=== PATIENT | female | born 1985 | race Caucasian/White ===

== ENCOUNTER 2016-09-01 18:39 | Emergency (ER) | payer MEDICAID, OTHER ==
[~2016-09-01] VITALS: Ht 157.5 cm; Wt 100.0 kg
[2016-09-01 18:49] VITALS: BP 177/99; PULSE 105; RESP 20; TEMP 98.7; O2SAT 99
[2016-09-01] MEDS ORDERED: LURA20TA PO (19:02)
[2016-09-01] MEDS ORDERED: HYDR1CAP30 PO (19:02)
[2016-09-01] MEDS ORDERED: PARO40TA2 PO (19:02)
--- NOTE | 2016-09-01 19:40 | PD ---
HPI Chief Complaint: Suicide Ideation/Attempt Time Seen by Provider: 19:00 Travel History International Travel<30 days: No Contact w/Intl Traveler<30days: No Traveled to known affect area: No History of Present Illness HPI 31-year-old female with history of anxiety, depression, bipolar disorder presents emergency Department voluntarily requesting psychiatric evaluation. Patient reports over the last week she has become increasingly more depressed, anxious having multiple panic attacks. She reports she has thoughts of wanting to "end it all". She states she can no longer handle the anxiety. Her plan is to overdose on her medications. Patient denies homicidal ideation. She reports that [facility]. She has no other medical complaint. [facility] Past Medical History Narrative Medical Significant for anxiety, depression, bipolar disorder Anxiety: Yes Depression: Yes Kidney Stones: Yes ?: Not LMP: AT THIS TIME Past Surgical History Tonsillectomy: Yes Other Surgery: Yes (LITHTRIPSY) Social History Alcohol Use: Yes (OCCASIONAL) Tobacco Use: Yes (1/2 PPD) Substance Use: Yes (MARIJUANA) Allergies-Medications (Allergen,Severity, Reaction): Coded Allergies: Phenergan (Verified Adverse Reaction, Severe, 09/01/16) shaking Reported Meds & Prescriptions Reported Meds & Active Scripts Active Reported Latuda (Lurasidone) 20 Mg Tab 20 Mg PO DAILY Paroxetine (Paroxetine HCl) 40 Mg Tab 40 Mg PO DAILY Hydroxyzine Pamoate 25 Mg Cap 25 Mg PO TID Review of Systems Except as stated in HPI: all other systems reviewed are Neg General / Constitutional: No: Fever Eyes: No: Visual changes HENT: No: Headaches Cardiovascular: No: Chest Pain or Discomfort Respiratory: No: Shortness of Breath Gastrointestinal: No: Abdominal Pain Genitourinary: No: Dysuria Physical Exam Narrative GENERAL: Alert, well-appearing female, tearful SKIN: Focused skin assessment warm/dry. HEAD: Atraumatic. Normocephalic. EYES: Pupils equal and round. No scleral icterus. No injection or drainage. ENT: No nasal bleeding or discharge. Mucous membranes pink and moist. NECK: Trachea midline. No JVD. CARDIOVASCULAR: Regular rate and rhythm. No murmur appreciated. RESPIRATORY: No accessory muscle use. Clear to auscultation. Breath sounds equal bilaterally. GASTROINTESTINAL: Abdomen soft, non-tender, nondistended. Hepatic and splenic margins not palpable. MUSCULOSKELETAL: No obvious deformities. No clubbing. No cyanosis. No edema. NEUROLOGICAL: Awake and alert. No obvious cranial nerve deficits. Motor grossly within normal limits. Normal speech. PSYCHIATRIC: Patient depressed and tearful; insight and judgment normal. Data Data Last Documented VS Vital Signs Date Time Temp Pulse Resp B/P Pulse Ox O2 Delivery O2 Flow Rate FiO2 09/01/16 19:50 95 20 136/70 97 Room Air 09/01/16 18:49 98.7 Orders Complete Blood Count With Diff (09/01/16 19:11) Comprehensive Metabolic Panel (09/01/16 19:11) Psych Screen (09/01/16 19:11) Drug Screen, Random Urine (09/01/16 19:11) Salicylates (Aspirin) (09/01/16 19:11) Tylenol (Acetaminophen) (09/01/16 19:11) Lorazepam Inj (Ativan Inj) (09/01/16 20:30) Diet Regular Basic (09/01/16 Dinner) Labs Laboratory Tests Test 09/01/16 19:30 White Blood Count 10.6 TH/MM3 Red Blood Count 4.75 MIL/MM3 Hemoglobin 15.2 GM/DL Hematocrit 43.8 % Mean Corpuscular Volume 92.3 FL Mean Corpuscular Hemoglobin 32.0 PG Mean Corpuscular Hemoglobin 34.7 % Concent Red Cell Distribution Width 12.7 % Platelet Count 275 TH/MM3 Mean Platelet Volume 9.0 FL Neutrophils (%) (Auto) 58.5 % Lymphocytes (%) (Auto) 27.4 % Monocytes (%) (Auto) 11.0 % Eosinophils (%) (Auto) 2.1 % Basophils (%) (Auto) 1.0 % Neutrophils # (Auto) 6.2 TH/MM3 Lymphocytes # (Auto) 2.9 TH/MM3 Monocytes # (Auto) 1.2 TH/MM3 Eosinophils # (Auto) 0.2 TH/MM3 Basophils # (Auto) 0.1 TH/MM3 CBC Comment DIFF FINAL Differential Comment Sodium Level 140 MEQ/L Potassium Level 3.9 MEQ/L Chloride Level 107 MEQ/L Carbon Dioxide Level 24.8 MEQ/L Anion Gap 8 MEQ/L Blood Urea Nitrogen 8 MG/DL Creatinine 0.71 MG/DL Estimat Glomerular Filtration 97 ML/MIN Rate Random Glucose 100 MG/DL Calcium Level 8.9 MG/DL Total Bilirubin 0.2 MG/DL Aspartate Amino Transf 89 U/L (AST/SGOT) Alanine Aminotransferase 176 U/L (ALT/SGPT) Alkaline Phosphatase 90 U/L Total Protein 7.3 GM/DL Albumin 3.4 GM/DL Salicylates Level 3.5 MG/DL Urine Opiates Screen NEG Acetaminophen Level LESS THAN 2.0 MCG/ML Urine Barbiturates Screen NEG Urine Amphetamines Screen NEG Urine Benzodiazepines Screen NEG Urine Cocaine Screen NEG Urine Cannabinoids Screen NEG MDM Medical Decision Making Medical Screen Exam Complete: Yes Emergency Medical Condition: Yes Differential Diagnosis suicidal ideation, anxiety, depression Narrative Course 31 year old female with hx of anxiety & depression here with suicidal ideation. Patient stated she wanted to kill herself by overdosing on her medications. She makes statements that her anxiety is "too much, I can't handle it anymore". Labs and tox screen pending. Once cleared patient will have psychiatric evaluation. CBC unremarkable CMP: AST 89, ALT 176- patient reports she's been told in the past that she has non-alcoholic hepatic steatosis with elevated liver enzymes. She was instructed she needs to follow-up with PCP and GI. Tox screen negative. Patient is medically cleared. Diagnosis Primary Impression: Suicidal ideation Additional Impression: Transaminitis Maegan Hercules Sep 01, 2016 19:40
[2016-09-01 19:50] VITALS: BP 136/70; PULSE 95; RESP 20; O2SAT 97
[2016-09-01 20:03] LABS: AUTOMATED NEUTROPHIL # 6.2 TH/MM3 (1.8-7.7); BASOPHIL # 0.1 TH/MM3 (0-0.2); EOSINOPHIL # 0.2 TH/MM3 (0-0.4); EOSINOPHIL % 2.1 % (0.0-4.0); HEMATOCRIT 43.8 % (35.0-46.0); HEMO FLAGS DIFF FINAL; LYMPH % 27.4 % (9.0-44.0); LYMPHOCYTE # 2.9 TH/MM3 (1.0-4.8); MEAN CELL VOLUME 92.3 FL (80.0-100.0); MEAN CORPUSCULAR HGB CONC 34.7 % (32.0-36.0); NEUT % 58.5 % (16.0-70.0); PLATELET COUNT 275 TH/MM3 (150-450); RED BLOOD COUNT 4.75 MIL/MM3 (4.00-5.30); RED CELL DISTRIBUTION WIDTH 12.7 % (11.6-17.2); WHITE BLOOD COUNT 10.6 TH/MM3 (4.0-11.0)
[2016-09-01 20:26] LABS: ALT (GPT) 176 U/L (10-53); AMPHETAMINE, URINE NEG (NEG); BARBITURATES, URINE NEG (NEG)
[2016-09-01 20:27] LABS: ALKALINE PHOSPHATASE 90 U/L (45-117); COCAINE, URINE NEG (NEG); TOTAL BILIRUBIN ADULT 0.2 MG/DL (0.2-1.0)
[2016-09-01 20:29] LABS: ACETAMINOPHEN LESS THAN 2.0 MCG/ML (10.0-30.0); ANION GAP 8 MEQ/L (5-15); AST (GOT) 89 U/L (15-37); BICARBONATE 24.8 MEQ/L (21.0-32.0); BLOOD UREA NITROGEN 8 MG/DL (7-18); CHLORIDE 107 MEQ/L (98-107); GLOMERULAR FILTRATION RATE 97 ML/MIN (>89); POTASSIUM 3.9 MEQ/L (3.5-5.1); SODIUM (NA) 140 MEQ/L (136-145)
[2016-09-01] MEDS ORDERED: LORazepam 2 MG/ML VIAL IV PUSH ONE (20:30)
[2016-09-01 21:07] VITALS: BP 118/56; PULSE 91; RESP 20; O2SAT 97
[2016-09-01 21:40] VITALS: BP 148/89; PULSE 93; RESP 18; O2SAT 96
[2016-09-02 02:13] VITALS: BP 125/75; PULSE 81; RESP 18; O2SAT 97
[2016-09-02 06:08] VITALS: BP 116/55; PULSE 78; RESP 20; O2SAT 95
[2016-09-02 13:27] VITALS: BP 130/70; PULSE 78; RESP 18; O2SAT 95
[2016-09-02 22:04] VITALS: BP 139/66; PULSE 66; RESP 19; O2SAT 97
== END 2016-09-02 23:38 ==
LOC: NEPD 18:39 → NEPJ 09-02 23:38
DX: R45.851 Suicidal ideations (principal); R74.0 Nonspecific elevation of levels of transaminase and lactic acid dehydrogenase [LDH]; Z79.899 Other long term (current) drug therapy
CPT/HCPCS: 80053; 80307; 85025; 96374; 99284; J2060

== ENCOUNTER 2016-11-05 17:42 | Emergency (ER) | payer MEDICAID ==
[~2016-11-05] VITALS: Ht 157.5 cm; Wt 100.0 kg
[~2016-11-05 17:42] MED LIST: HYDR1CAP30 PO; LURA20TA PO; PARO40TA2 PO
[2016-11-05 17:43] VITALS: BP 162/97; PULSE 106; RESP 24; TEMP 97.8; O2SAT 97
[2016-11-05] MEDS ORDERED: SODIUM CHLOR 0.9% 1000 ML INJ 1,000 ML IV SCH (18:06)
--- NOTE | 2016-11-05 18:08 | PD ---
HPI Chief Complaint: Complaint Time Seen by Provider: 17:59 Travel History International Travel<30 days: No Contact w/Intl Traveler<30days: No Traveled to known affect area: No History of Present Illness HPI 31 year old female with history of medullary sponge disease and anxiety presents to the ED for evaluation of bilateral flank pain, worse on the right than the left, urinary urgency with decreased output and concern she may have a kidney stone. Pt states she has had this happen several times in the past and the symptoms are similar. Denies fever or chills. Some nausea without vomiting. No hematuria. Pt is currently on her menses. No other symptoms to report. PFSH Past Medical History Anxiety: Yes Depression: Yes Kidney Stones: Yes ?: Not Past Surgical History Tonsillectomy: Yes Other Surgery: Yes (LITHTRIPSY) Social History Alcohol Use: Yes (OCCASIONAL) Tobacco Use: Yes (1/2 PPD) Substance Use: No Allergies-Medications (Allergen,Severity, Reaction): Coded Allergies: promethazine (Unverified Adverse Reaction, Severe, 11/05/16) shaking Reported Meds & Prescriptions Reported Meds & Active Scripts Active Lortab (Hydrocodone-Acetaminophen) 5-325 Mg Tab 1 Tab PO Q6H PRN Flomax (Tamsulosin HCl) 0.4 Mg Cap 0.4 Mg PO HS Keflex (Cephalexin) 500 Mg Cap 500 Mg PO Q12H 7 Days Reported Latuda (Lurasidone) 20 Mg Tab 20 Mg PO DAILY Paroxetine (Paroxetine HCl) 40 Mg Tab 40 Mg PO DAILY Hydroxyzine Pamoate 25 Mg Cap 25 Mg PO TID Review of Systems Except as stated in HPI: all other systems reviewed are Neg Physical Exam Narrative GENERAL: Well nourished female patient in no acute distress. Pt verbalizes significant anxiety being here. SKIN: Warm and dry. HEAD: Atraumatic. Normocephalic. EYES: Pupils equal and round. No scleral icterus. No injection or drainage. ENT: No nasal bleeding or discharge. Mucous membranes pink and moist. NECK: Trachea midline. No JVD. CARDIOVASCULAR: Tachycardic rate and rhythm. RESPIRATORY: No accessory muscle use. Clear to auscultation. Breath sounds equal bilaterally. GASTROINTESTINAL: Abdomen soft, nondistended. Supra pubic tenderness to deep palpation. Hepatic and splenic margins not palpable. MUSCULOSKELETAL: Extremities without clubbing, cyanosis, or edema. No obvious deformities. Mild CVA tenderness on right. NEUROLOGICAL: Awake and alert. No obvious cranial nerve deficits. Motor grossly within normal limits. Five out of 5 muscle strength in the arms and legs. Normal speech. Data Data Last Documented VS Vital Signs Date Time Temp Pulse Resp B/P (MAP) Pulse Ox O2 Delivery O2 Flow Rate FiO2 11/05/16 19:59 11/05/16 19:31 16 11/05/16 19:29 98.5 82 100 Room Air Orders Orders Basic Metabolic Panel (Bmp) (11/05/16 18:06) Complete Blood Count With Diff (11/05/16 18:06) Urinalysis - C+S If Indicated (11/05/16 18:06) Iv Access Insert/Monitor (11/05/16 18:06) Ecg Monitoring (11/05/16 18:06) Oximetry (11/05/16 18:06) Sodium Chlor 0.9% 1000 Ml Inj (Ns 1000 M (11/05/16 18:06) Sodium Chloride 0.9% Flush (Ns Flush) (11/05/16 18:15) Ketorolac Inj (Toradol Inj) (11/05/16 18:15) Ed Urine Pregnancytest Poc (11/05/16 18:06) Ct Abd/Pel W/O Iv Contrast (11/05/16 ) Ceftriaxone Inj (Rocephin Inj) (11/05/16 19:30) Sodium Chlor 0.9% 1000 Ml Inj (Ns 1000 M (11/05/16 19:30) Labs Laboratory Tests Test 11/05/16 18:28 White Blood Count 12.8 TH/MM3 Red Blood Count 4.60 MIL/MM3 Hemoglobin 14.2 GM/DL Hematocrit 41.8 % Mean Corpuscular Volume 90.8 FL Mean Corpuscular Hemoglobin 30.9 PG Mean Corpuscular Hemoglobin Concent 34.0 % Red Cell Distribution Width 12.3 % Platelet Count 287 TH/MM3 Mean Platelet Volume 8.2 FL Neutrophils (%) (Auto) 59.9 % Lymphocytes (%) (Auto) 27.2 % Monocytes (%) (Auto) 9.3 % Eosinophils (%) (Auto) 2.8 % Basophils (%) (Auto) 0.8 % Neutrophils # (Auto) 7.7 TH/MM3 Lymphocytes # (Auto) 3.5 TH/MM3 Monocytes # (Auto) 1.2 TH/MM3 Eosinophils # (Auto) 0.4 TH/MM3 Basophils # (Auto) 0.1 TH/MM3 CBC Comment DIFF FINAL Differential Comment Urine Color YELLOW Urine Turbidity HAZY Urine pH 6.5 Urine Specific [place] 1.035 Urine Protein 30 mg/dL Urine Glucose (UA) NEG mg/dL Urine Ketones NEG mg/dL Urine Occult Blood SMALL Urine Nitrite NEG Urine Bilirubin NEG Urine Urobilinogen 2.0 MG/DL Urine Leukocyte Esterase TRACE Urine RBC 77 /hpf Urine WBC 7 /hpf Urine Squamous Epithelial Cells 1 /hpf Urine Calcium Oxalate Crystals FEW /hpf Urine Mucus FEW /lpf Microscopic Urinalysis Comment CULT NOT INDICATED Blood Urea Nitrogen 10 MG/DL Creatinine 0.83 MG/DL Random Glucose 120 MG/DL Calcium Level 8.1 MG/DL Sodium Level 139 MEQ/L Potassium Level 3.7 MEQ/L Chloride Level 107 MEQ/L Carbon Dioxide Level 23.4 MEQ/L Anion Gap 9 MEQ/L Estimat Glomerular Filtration Rate 81 ML/MIN [facility] Medical Decision Making Medical Screen Exam Complete: Yes Emergency Medical Condition: Yes Medical Record Reviewed: Yes Differential Diagnosis cystitis versus pyelonephritis versus renal colic versus renal calculi Narrative Course 31 year old female presents to the ED for evaluation of flank pain and urinary symptoms. Pt is anxious, but appears well. She does have right CVA tenderness and some suprapubic tenderness to deep palpation. Laboratory Tests Test 11/05/16 18:28 White Blood Count 12.8 TH/MM3 Red Blood Count 4.60 MIL/MM3 Hemoglobin 14.2 GM/DL Hematocrit 41.8 % Mean Corpuscular Volume 90.8 FL Mean Corpuscular Hemoglobin 30.9 PG Mean Corpuscular Hemoglobin Concent 34.0 % Red Cell Distribution Width 12.3 % Platelet Count 287 TH/MM3 Mean Platelet Volume 8.2 FL Neutrophils (%) (Auto) 59.9 % Lymphocytes (%) (Auto) 27.2 % Monocytes (%) (Auto) 9.3 % Eosinophils (%) (Auto) 2.8 % Basophils (%) (Auto) 0.8 % Neutrophils # (Auto) 7.7 TH/MM3 Lymphocytes # (Auto) 3.5 TH/MM3 Monocytes # (Auto) 1.2 TH/MM3 Eosinophils # (Auto) 0.4 TH/MM3 Basophils # (Auto) 0.1 TH/MM3 CBC Comment DIFF FINAL Differential Comment Urine Color YELLOW Urine Turbidity HAZY Urine pH 6.5 Urine Specific [place] 1.035 Urine Protein 30 mg/dL Urine Glucose (UA) NEG mg/dL Urine Ketones NEG mg/dL Urine Occult Blood SMALL Urine Nitrite NEG Urine Bilirubin NEG Urine Urobilinogen 2.0 MG/DL Urine Leukocyte Esterase TRACE Urine RBC 77 /hpf Urine WBC 7 /hpf Urine Squamous Epithelial Cells 1 /hpf Urine Calcium Oxalate Crystals FEW /hpf Urine Mucus FEW /lpf Microscopic Urinalysis Comment CULT NOT INDICATED Blood Urea Nitrogen 10 MG/DL Creatinine 0.83 MG/DL Random Glucose 120 MG/DL Calcium Level 8.1 MG/DL Sodium Level 139 MEQ/L Potassium Level 3.7 MEQ/L Chloride Level 107 MEQ/L Carbon Dioxide Level 23.4 MEQ/L Anion Gap 9 MEQ/L Estimat Glomerular Filtration Rate 81 ML/MIN Last Impressions Abdomen/Pelvis CT 11/05/16 0000 Signed Impressions: Service Date/Time: October 18:50 - CONCLUSION: 1. No stone or obstruction on the right. 2. 2 mm stone at the proximal left ureter without hydronephrosis. Also an irregular 7 mm nonobstructing stone of the left lower pole. Left-sided stones are not well-visualized on the initial exhibit specialist radiograph. 3. Fatty liver. 4. Lower lumbar degenerative changes. Gary Covington MD Results are discussed with the patient. She will be discharged with flomax and pain control. She is advised to follow up with urology promptly. I have also encouraged her to establish care with a paster hat lining based on he rmedical history. She verbalized understanding and will be discharged at this time Diagnosis Primary Impression: Renal calculi Additional Impression: UTI (urinary tract infection) Qualified Codes: N30.01 - Acute cystitis with hematuria Referrals: Primary Care Physician Urologist Patient Instructions: General Instructions, How to Strain Your Urine (ED), Kidney Stones (ED) Additional Instructions: Maintain adequate oral hydration Follow-up with your primary care provider It is important that you establish care with a paster hat lining Follow-up with urology Return immediately to the emergency department with any acute worsening of symptoms Med/Other Pt SpecificInfo: Prescription(s) given Scripts Hydrocodone-Acetaminophen (Lortab) 5-325 Mg Tab 1 TAB PO Q6H Y for PAIN GREATER THAN 6, #6 TAB 0 Refills Prov: Mavis Mann 11/05/16 Tamsulosin (Flomax) 0.4 Mg Cap 0.4 MG PO HS for Manage Prostate Problems, #5 CAP 0 Refills Prov: Mavis Mann 11/05/16 Cephalexin (Keflex) 500 Mg Cap 500 MG PO Q12H for Infection for 7 Days, #14 CAP 0 Refills Prov: Mavis Mann 11/05/16 Disposition: 01 DISCHARGE HOME Condition: Stable Mavis Mann Nov 05, 2016 18:07
[2016-11-05] MEDS ORDERED: KETOROLAC TROMETHAMINE 30 MG/ML (IVP) VIAL IVP ONE (18:15)
[2016-11-05] MEDS ORDERED: SODIUM CHLORIDE 0.9% FLUSH 10 ML FLUSH IV FLUSH PRN (18:15)
[2016-11-05 18:17] VITALS: PULSE 105; RESP 18; O2SAT 96
[2016-11-05 18:49] LABS: AUTOMATED NEUTROPHIL # 7.7 TH/MM3 (1.8-7.7); BASOPHIL # 0.1 TH/MM3 (0-0.2); BASOPHIL % 0.8 % (0.0-2.0); EOSINOPHIL # 0.4 TH/MM3 (0-0.4); EOSINOPHIL % 2.8 % (0.0-4.0); HEMATOCRIT 41.8 % (35.0-46.0); HEMO FLAGS DIFF FINAL; LYMPH % 27.2 % (9.0-44.0); LYMPHOCYTE # 3.5 TH/MM3 (1.0-4.8); MEAN CELL VOLUME 90.8 FL (80.0-100.0); MEAN CORPUSCULAR HEMOGLOBIN 30.9 PG (27.0-34.0); MONO % 9.3 % (0.0-8.0); NEUT % 59.9 % (16.0-70.0); PLATELET COUNT 287 TH/MM3 (150-450); RED CELL DISTRIBUTION WIDTH 12.3 % (11.6-17.2); WHITE BLOOD COUNT 12.8 TH/MM3 (4.0-11.0)
[2016-11-05 18:59] LABS: BLOOD, URINE SMALL (NEG); CALCIUM OXALATE CRYSTALS,URINE FEW /hpf; COMMENT (UR) CULT NOT INDICATED; CULTURE IF INDICATED CULT NOT INDICATED; GLUCOSE,URINE NEG (NEG); KETONE, URINE NEG (NEG); MUCUS URINE FEW /lpf (OCC); NITRITE,URINE NEG (NEG); PH, URINE 6.5 (5.0-8.5); SQUAMOUS EPITHELIAL CELL URINE 1 /hpf (0-5); URINE COLOR YELLOW (YELLW/STRAW)
--- NOTE | 2016-11-05 19:08 | RADRPT ---
EXAM DATE/TIME: 11/05/2016 18:50 [place] COMPARISON: No previous studies available for comparison. INDICATIONS : Right flank pain and dysuria. ORAL CONTRAST: No oral contrast ingested. RADIATION DOSE: 15.50 CTDIvol (mGy) MEDICAL HISTORY : Renal calculi. SURGICAL HISTORY : Lithotripsy. ENCOUNTER: Initial ACUITY: 1 day PAIN SCALE: 7/10 LOCATION: Right flank TECHNIQUE: Volumetric scanning of the abdomen and pelvis was performed. Using automated exposure control and ad justment of the mA and/or kV according to patient size, radiation dose was kept as low as reasonably achievable to obtain optimal diagnostic quality images. DICOM format image data is available electro nically for review and comparison. FINDINGS: LOWER LUNGS: The visualized lower lungs are clear. LIVER: Liver is fatty infiltrated with some sparing around the gallbladder fossa. The CT appearance of the g allbladder within normal limits. No ductal dilatation. SPLEEN: Normal size without lesion. PANCREAS: Within normal limits. KIDNEYS: Right kidney has a normal noncontrast appearance. Irregular 7 mm stone seen left lower pole, nonobstr ucting. There is a 2 mm calculus in the proximal left ureter just below the UPJ without hydronephrosi s. ADRENAL GLANDS: Within normal limits. VASCULAR: There is no aortic aneurysm. BOWEL/MESENTERY: The stomach, small bowel, and colon demonstrate no acute abnormality. There is no free intraperitone al air or fluid. Normal appendix. ABDOMINAL WALL: Within normal limits. RETROPERITONEUM: There is no lymphadenopathy. BLADDER: No wall thickening or mass. REPRODUCTIVE: Within normal limits. INGUINAL: There is no lymphadenopathy or hernia. MUSCULOSKELETAL: No acute bony abnormality demonstrated. Disc space narrowing with vacuum phenomena seen in the lower lumbar spine at L4/L5 and L5/S1. CONCLUSION: 1. No stone or obstruction on the right. 2. 2 mm stone at the proximal left ureter without hydronephrosis. Also an irregular 7 mm nonobstructi ng stone of the left lower pole. Left-sided stones are not well-visualized on the initial embroiderer radio graph. 3. Fatty liver. 4. Lower lumbar degenerative changes. Gary Covington MD on November 05, 2016 at 19:01 Board Certified Radiologist. This report was verified electronically.
[2016-11-05 19:15] LABS: BICARBONATE 23.4 MEQ/L (21.0-32.0); POTASSIUM 3.7 MEQ/L (3.5-5.1)
[2016-11-05 19:29] VITALS: BP 147/81; PULSE 82; RESP 16; TEMP 98.5; O2SAT 100
[2016-11-05] MEDS ORDERED: cefTRIAXone INJ 1,000 MG in SODIUM CHLORIDE 0.9% INJ 100 ML IV ONE (19:30)
[2016-11-05] MEDS ORDERED: SODIUM CHLOR 0.9% 1000 ML INJ 1,000 ML IV ONE (19:30)
[2016-11-05 19:31] VITALS: RESP 16
[2016-11-05] MEDS ORDERED: CEPH-460 PO (19:44)
[2016-11-05] MEDS ORDERED: HYDR-3533 PO (20:14)
[2016-11-05] MEDS ORDERED: TAMS5CAP PO (20:14)
== END 2016-11-05 20:19 | disposition home or self-care (01) ==
LOC: NEPD 17:42
DX: N39.0 Urinary tract infection, site not specified (principal); N20.0 Calculus of kidney; F17.210 Nicotine dependence, cigarettes, uncomplicated
CPT/HCPCS: 74176; 80048; 81001; 84703; 85025; 96361; 96374; 99285; J0696; J1885; J7030

== ENCOUNTER 2016-12-30 07:35 | Emergency (ER) | payer MEDICAID ==
[~2016-12-30] VITALS: Ht 157.5 cm; Wt 100.0 kg
[~2016-12-30 07:35] MED LIST changes: +CEPH-460 PO; +HYDR-3533 PO; +TAMS5CAP PO
[2016-12-30 07:36] VITALS: BP 177/114; PULSE 100; RESP 20; TEMP 98.7; O2SAT 98
--- NOTE | 2016-12-30 07:59 | PD ---
HPI . Flank pain Chief Complaint: Complaint Time Seen by Provider: 07:46 Travel History International Travel<30 days: No Contact w/Intl Traveler<30days: No Traveled to known affect area: No History of Present Illness HPI This patient presents with a chief complaint of right flank pain. Onset was a week ago. It is getting progressively worse. She describes a stabbing pain which she rates 8/10. She has not noted any modifying factors. Associated symptoms include nausea, dysuria and subjective fever. Patient reports a history of medullary sponge kidney which makes her prone to kidney stones. She states that she is normally treated with Flomax and pain medication has kidney stones. She states that she does not have any medicines at home to take for the kidney stones. She states that she is medicated patient and is unable to see urology for nephrology for her kidney disease. PFSH Past Medical History Anxiety: Yes Depression: Yes Diminished Hearing: No Genitourinary: Yes Kidney Stones: Yes Psychiatric: Yes Tetanus Vaccination: > 5 Years Influenza Vaccination: No ?: Not LMP: 12/06/16 : 2 Para: 1 : 1 Past Surgical History Tonsillectomy: Yes Other Surgery: Yes (LITHOTRIPSY) Social History Alcohol Use: Yes (OCCASIONAL) Tobacco Use: No (quit 8 weeks ago) Substance Use: Yes (marijuana) Allergies-Medications (Allergen,Severity, Reaction): Coded Allergies: promethazine (Unverified Adverse Reaction, Severe, 12/30/16) shaking Reported Meds & Prescriptions Reported Meds & Active Scripts Active Reported Latuda (Lurasidone) 20 Mg Tab 20 Mg PO DAILY Paroxetine (Paroxetine HCl) 40 Mg Tab 40 Mg PO DAILY Hydroxyzine Pamoate 25 Mg Cap 25 Mg PO TID Review of Systems Except as stated in HPI: all other systems reviewed are Neg General / Constitutional: Positive: Fever, Chills Gastrointestinal: Positive: Nausea, No: Vomiting, Diarrhea Genitourinary: Positive: Dysuria, Flank Pain Physical Exam Narrative GENERAL: This is a well-appearing patient who is in no acute distress. SKIN: warm/dry. Normal color and capillary refill. HEAD: Normocephalic. Atraumatic. EYES: Pupils equal and round. No scleral icterus. No injection or drainage. ENT: No nasal bleeding or discharge. Mucous membranes pink and moist. NECK: Trachea midline. Full range of motion without pain.. CARDIOVASCULAR: Regular rate and rhythm. Heart sounds normal. RESPIRATORY: No accessory muscle use. Clear to auscultation. Breath sounds equal bilaterally. GASTROINTESTINAL: Abdomen soft. Nontender. Bowel sounds present. Nondistended. No CVA tenderness. MUSCULOSKELETAL: No obvious deformities. NEUROLOGICAL: Awake and alert. No obvious cranial nerve deficits. Motor grossly within normal limits. Normal speech. PSYCHIATRIC: Appropriate mood and affect; insight and judgment normal. Data Data Last Documented VS Vital Signs Date Time Temp Pulse Resp B/P (MAP) Pulse Ox O2 Delivery O2 Flow Rate FiO2 12/30/16 07:46 20 12/30/16 07:36 98.7 100 177/114 (135) 98 Room Air Orders Orders Cath For Specimen (12/30/16 07:46) Urinalysis - C+S If Indicated (12/30/16 07:46) Ed Urine Pregnancytest Poc (12/30/16 07:46) Morphine Inj (Morphine Inj) (12/30/16 08:00) Sodium Chlor 0.9% 1000 Ml Inj (Ns 1000 M (12/30/16 08:00) Ondansetron Inj (Zofran Inj) (12/30/16 08:00) Ketorolac Inj (Toradol Inj) (12/30/16 08:00) Tamsulosin (Flomax) (12/30/16 08:00) Ct Abd/Pel W/O Iv Contrast (12/30/16 07:52) Labs Laboratory Tests Test 12/30/16 08:00 Urine Color LIGHT-YELLOW Urine Turbidity CLEAR Urine pH 6.5 Urine Specific [place] 1.006 Urine Protein NEG mg/dL Urine Glucose (UA) NEG mg/dL Urine Ketones NEG mg/dL Urine Occult Blood NEG Urine Nitrite NEG Urine Bilirubin NEG Urine Urobilinogen LESS THAN 2.0 MG/DL Urine Leukocyte Esterase NEG Urine WBC 1 /hpf Urine Squamous Epithelial Cells <1 /hpf Urine Mucus FEW /lpf Microscopic Urinalysis Comment CULT NOT INDICATED MDM Medical Decision Making Medical Screen Exam Complete: Yes Emergency Medical Condition: Yes Medical Record Reviewed: Yes (patient was most recently seen here on 11/05 with similar symptoms. She was treated in the emergency department with Toradol and was discharged with Lortab, Flomax and Keflex. She had normal renal function. CT showed some stones on the left but no stones on the right. She was complaining with right flank pain at that time as well.) Differential Diagnosis Differential diagnosis of flank pain includes but is not limited to kidney stone , pyelonephritis, musculoskeletal pain, PE Narrative Course This patient presents with the chief complaint of right flank pain and dysuria associated with nausea and a subjective fever. She will be evaluated for possible urinary tract infection or obstructive calculus. While awaiting her workup, I will treat her with IV fluids, IV Toradol, IV morphine, IV Zofran and oral Flomax. HCG neg. UA neg for blood and infection. Last Impressions Abdomen/Pelvis CT 12/30/16 0752 Signed Impressions: Service Date/Time: Friday, December 30, 2016 08:34 - CONCLUSION: 1. No abnormality is identified to explain the right flank pain. 2. There are multiple nonobstructing left renal stones measuring up to 5 mm. The previous documented left ureteral stone has passed. 3. Nonacute findings include hepatic steatosis and mild atherosclerotic disease. Gary Castillo MD This patient has no etiology to explain her flank pain. She has a benign examination. She will be discharged to home. Diagnosis Primary Impression: Right flank pain Patient Instructions: Flank Pain (ED), General Instructions Disposition: 01 DISCHARGE HOME Condition: Stable Katy Brink MD Dec 30, 2016 07:59
[2016-12-30] MEDS ORDERED: TAMSULOSIN HCL 0.4 MG CAP PO ONE (08:00)
[2016-12-30] MEDS ORDERED: SODIUM CHLOR 0.9% 1000 ML INJ 1,000 ML IV ONE (08:00)
[2016-12-30] MEDS ORDERED: KETOROLAC TROMETHAMINE 30 MG/ML (IVP) VIAL IV PUSH ONE (08:00)
[2016-12-30] MEDS ORDERED: MORPHINE SULFATE 4 MG/ML INJ IV PUSH ONE (08:00)
[2016-12-30] MEDS ORDERED: ONDANSETRON HCL 4 MG/2 ML VIAL IV PUSH ONE (08:00)
[2016-12-30 08:05] VITALS: BP 167/90; PULSE 91; RESP 20; O2SAT 97
[2016-12-30 08:30] LABS: BLOOD, URINE NEG (NEG); COMMENT (UR) CULT NOT INDICATED; CULTURE IF INDICATED CULT NOT INDICATED; GLUCOSE,URINE NEG (NEG); KETONE, URINE NEG (NEG); MUCUS URINE FEW /lpf (OCC); NITRITE,URINE NEG (NEG); PH, URINE 6.5 (5.0-8.5); SQUAMOUS EPITHELIAL CELL URINE <1 /hpf (0-5); URINE COLOR LIGHT-YELLOW (YELLW/STRAW)
--- NOTE | 2016-12-30 08:52 | RADRPT ---
EXAM DATE/TIME: 12/30/2016 08:34 [place] COMPARISON: CT ABDOMEN & PELVIS W/O CONTRAST, November 05, 2016, 18:50. INDICATIONS : Right flank pain ORAL CONTRAST: No oral contrast ingested. RADIATION DOSE: 8.51 CTDIvol (mGy) MEDICAL HISTORY : Renal calculi. SURGICAL HISTORY : None. ENCOUNTER: Initial ACUITY: 1 week PAIN SCALE: 8/10 LOCATION: Right flank TECHNIQUE: Volumetric scanning of the abdomen and pelvis was performed. Using automated exposure control and ad justment of the mA and/or kV according to patient size, radiation dose was kept as low as reasonably achievable to obtain optimal diagnostic quality images. DICOM format image data is available electro nically for review and comparison. FINDINGS: LOWER LUNGS: The visualized lower lungs are clear. LIVER: Abnormal diffuse decreased density without lesion. There is no dilation of the biliary tree. No selma cified gallstones. SPLEEN: Normal size without lesion. PANCREAS: Within normal limits. KIDNEYS: Normal in size and shape. There is no mass or hydronephrosis. There is a 2 mm nonobstructing stone i n the left mid kidney along with a grouping of several adjacent stones in the left lower pole collect ing system measuring up to 5 mm. The previously documented left ureteral stone is no longer present. There are no right renal stones. ADRENAL GLANDS: Within normal limits. VASCULAR: There is no aortic aneurysm. There is mild atherosclerotic disease. BOWEL/MESENTERY: The stomach, small bowel, and colon demonstrate no acute abnormality. There is no free intraperitone al air or fluid. Appendix and terminal ileum are normal. ABDOMINAL WALL: Within normal limits. RETROPERITONEUM: There is no lymphadenopathy. BLADDER: No wall thickening or mass. REPRODUCTIVE: Within normal limits. INGUINAL: There is no lymphadenopathy or hernia. MUSCULOSKELETAL: No acute abnormality. CONCLUSION: 1. No abnormality is identified to explain the right flank pain. 2. There are multiple nonobstructing left renal stones measuring up to 5 mm. The previous documented left ureteral stone has passed. 3. Nonacute findings include hepatic steatosis and mild atherosclerotic disease. Gary Castillo MD on December 30, 2016 at 8:45 Board Certified Radiologist. This report was verified electronically.
== END 2016-12-30 09:19 | disposition home or self-care (01) ==
LOC: NEPC 07:35
DX: R10.9 Unspecified abdominal pain (principal); R11.0 Nausea; R30.0 Dysuria; R50.9 Fever, unspecified; Z87.442 Personal history of urinary calculi; Z86.59 Personal history of other mental and behavioral disorders; Z87.448 Personal history of other diseases of urinary system; Z87.891 Personal history of nicotine dependence
CPT/HCPCS: 74176; 81001; 84703; 96361; 96374; 96375; 99285; J1885; J2270; J2405; J7030

== ENCOUNTER 2017-06-28 13:44 | Emergency (ER) | payer SELFPAY, MEDICAID ==
[2017-06-28] MEDS: SODIUM CHLOR 0.9% 1000 ML INJ 1,000 ML IV (15:37)
[2017-06-28] MEDS: ONDANSETRON HCL 4 MG/2 ML VIAL IV PUSH (15:37)
[2017-06-28] MEDS: TAMSULOSIN HCL 0.4 MG CAP PO (15:37)
[2017-06-28] MEDS: MORPHINE SULFATE 4 MG/ML INJ IV PUSH (15:37)
[2017-06-28 16:01] LABS: BILIRUBIN, URINE NEG (NEG); BLOOD, URINE NEG (NEG); COMMENT (UR) CULT NOT INDICATED; CULTURE IF INDICATED CULT NOT INDICATED; GLUCOSE,URINE NEG (NEG); KETONE, URINE 40 mg/dL (NEG); MUCUS URINE FEW /lpf (OCC); NITRITE,URINE NEG (NEG); SQUAMOUS EPITHELIAL CELL URINE 2 /hpf (0-5); URINE COLOR YELLOW (YELLW/STRAW); URINE LEUKOCYTE ESTERASE NEG (NEG)
== END 2017-06-28 19:20 | disposition home or self-care (01) ==
LOC: NEPD 13:44
DX: N20.0 Calculus of kidney (principal); R39.15 Urgency of urination; R11.0 Nausea; Z87.442 Personal history of urinary calculi
CPT/HCPCS: 74176; 81001; 84703; 96361; 96374; 96375; 99284-25